=== PATIENT | female | born 1985 | race American Indian/Alaskan Native ===

== ENCOUNTER 2021-06-24 09:43 | Emergency (ER) | payer OTHER ==
[2021-06-24 10:01] VITALS: BP 124/57
[2021-06-24 10:27] LABS: Bilirubin,Urine NEG (Negative); Blood,Urine SM (Negative); Color,Urine Yellow (Yellow); Mucus,Urine 1+ /HPF; Protein,Urine <15 mg/dL mg/dL (Negative)
--- NOTE | 2021-06-24 10:55 | Emergency Department Report ---
ED HPI - General Chief complaint: Abdominal Pain Stated complaint: 19WKS LWER ABDOM PAIN Time Seen by Provider: 06/24/21 10:01 Source: patient Mode of arrival: Ambulatory Limitations: No Limitations - History of Present Illness Initial comments: This is a 35-year-old female nontoxic, well nourished in appearance, no acute signs of distress presents to the ED with c/o of pelvic cramping that started yesterday. Currently patient denies any pelvic pain but stated is intermittent. Patient stated symptoms started after sexual intercourse. Patient denies any abdominal pain. Patient denies any vaginal bleeding. Denies any other complaints or symptoms. Denies any flank pain. Patient denies any vaginal discharge or foul odor. Patient denies any nausea, vomiting, chest pain, shortness of breathe, fever, chills, headache, stiff neck, numbness, tingling. Patient denies any urinary symptoms. Patient denies any allergies or PMH. -: days(s) Location: pelvis Radiation: none Severity: mild Severity scale (0 -10): 3 Quality: cramping Consistency: intermittent Improves with: none Worsens with: none Associated symptoms: denies other symptoms. denies: nausea/vomiting, vaginal bleeding, vaginal discharge, abdominal pain, dysuria, headache, vision changes, malaise, dysparuenia, rash, seizure, shortness of breath, syncope, weakness Vaginal bleeding: none :: Yes Number of weeks : 19 Pre- care: followed by OB - Related Data Previous Rx's Medication Instructions Recorded Last Taken Type Nitrofurantoin [place]/M-Cryst 100 mg PO Q12HR #14 capsule 06/24/21 Unknown Rx [Macrobid CAP] Allergies Allergy/AdvReac Type Severity Reaction Status Date / Time No Known Allergies Allergy Verified 06/24/21 09:52 ED Review of Systems ROS: Stated complaint: 19WKS LWER ABDOM PAIN Other details as noted in HPI Comment: All other systems reviewed and negative Constitutional: denies: chills, fever Eyes: denies: eye pain, eye discharge, vision change ENT: denies: ear pain, throat pain Respiratory: denies: cough, shortness of breath, wheezing Cardiovascular: denies: chest pain, palpitations Endocrine: no symptoms reported Gastrointestinal: denies: abdominal pain, nausea, vomiting, diarrhea, constipation, hematemesis, melena, hematochezia Genitourinary: denies: urgency, dysuria, frequency, hematuria, discharge, abnormal menses, dyspareunia Musculoskeletal: denies: back pain, joint swelling, arthralgia Skin: denies: rash, lesions Neurological: denies: headache, weakness, paresthesias Psychiatric: denies: anxiety, depression Hematological/Lymphatic: denies: easy bleeding, easy bruising ED Past Medical Hx - Medications Home Medications: Home Medications Medication Instructions Recorded Confirmed Last Taken Type Nitrofurantoin [place]/M-Cryst 100 mg PO Q12HR #14 capsule 06/24/21 Unknown Rx [Macrobid CAP] ED Physical Exam - General Limitations: No Limitations General appearance: alert, in no apparent distress - Head Head exam: Present: atraumatic, normocephalic - Eye Eye exam: Present: normal appearance - Neck Neck exam: Present: normal inspection, full ROM. Absent: lymphadenopathy - Respiratory Respiratory exam: Present: normal lung sounds bilaterally. Absent: respiratory distress, wheezes, rales, rhonchi, stridor, chest wall tenderness, accessory muscle use, decreased breath sounds, prolonged expiratory - Cardiovascular Cardiovascular Exam: Present: regular rate, normal rhythm, normal heart sounds. Absent: bradycardia, tachycardia, irregular rhythm, systolic murmur, diastolic murmur, rubs, gallop - GI/Abdominal GI/Abdominal exam: Present: soft, normal bowel sounds. Absent: distended, tenderness, guarding, rebound, rigid, diminished bowel sounds - Extremities Exam Extremities exam: Present: full ROM - Back Exam Back exam: Present: normal inspection, full ROM. Absent: tenderness, CVA tenderness (R), CVA tenderness (L), muscle spasm, paraspinal tenderness, vertebral tenderness, rash noted - Neurological Exam Neurological exam: Present: alert, oriented X3, normal gait - Psychiatric Psychiatric exam: Present: normal affect, normal mood - Skin Skin exam: Present: warm, dry, intact, normal color. Absent: rash ED Course Vital Signs 06/24/21 09:54 Temperature 98.2 F Pulse Rate 90 Respiratory 18 Rate Blood Pressure 124/57 O2 Sat by Pulse 98 Oximetry - Reevaluation(s) Reevaluation #1: 06/24/21 10:55 Patient is speaking in full sentences with no signs of distress noted. ED Medical Decision Making - Lab Data Result diagrams: 06/24/21 11:30 06/24/21 11:30 Lab Results 06/24/21 06/24/21 06/24/21 Range/Units 11:30 11:30 11:30 WBC 10.5 (4.5-11.0) K/mm3 RBC 3.91 (3.65-5.03) M/mm3 Hgb 10.9 (10.1-14.3) gm/dl Hct 32.9 (30.3-42.9) % MCV 84 (79-97) fl MCH 28 (28-32) pg MCHC 33 (30-34) % RDW 14.0 (13.2-15.2) % Plt Count 273 (140-440) K/mm3 Lymph % (Auto) 10.6 L (13.4-35.0) % [place] % (Auto) 9.3 H (0.0-7.3) % Eos % (Auto) 0.9 (0.0-4.3) % Baso % (Auto) 0.3 (0.0-1.8) % Lymph # (Auto) 1.1 L (1.2-5.4) K/mm3 Wythe # (Auto) 1.0 H (0.0-0.8) K/mm3 Eos # (Auto) 0.1 (0.0-0.4) K/mm3 Baso # (Auto) 0.0 (0.0-0.1) K/mm3 Seg Neutrophils % 78.9 H (40.0-70.0) % Seg Neutrophils # 8.3 H (1.8-7.7) K/mm3 Sodium 135 L (137-145) mmol/L Potassium 3.9 (3.6-5.0) mmol/L Chloride 102.6 (98-107) mmol/L Carbon Dioxide 21 L (22-30) mmol/L Anion Gap 15 mmol/L BUN 4 L (7-17) mg/dL Creatinine 0.5 L (0.6-1.2) mg/dL Estimated GFR > 60 ml/min BUN/Creatinine Ratio 8 % Glucose 83 (65-100) mg/dL Calcium 9.0 (8.4-10.2) mg/dL Total Bilirubin 0.20 (0.1-1.2) mg/dL AST 22 (5-40) units/L ALT 39 (7-56) units/L Alkaline Phosphatase 68 (35-129) units/L Total Protein 7.1 (6.3-8.2) g/dL Albumin 3.8 L (3.9-5) g/dL Albumin/Globulin Ratio 1.2 % HCG, Quant 5034 H (0-4) mIU/mL Urine Color (Yellow) Urine Turbidity (Clear) Urine pH (5.0-7.0) Ur Specific [place] (1.003-1.030) Urine Protein (Negative) mg/dL Urine Glucose (UA) (Negative) mg/dL Urine Ketones (Negative) mg/dL Urine Blood (Negative) Urine Nitrite (Negative) Urine Bilirubin (Negative) Urine Urobilinogen (<2.0) mg/dL Ur Leukocyte Esterase (Negative) Urine WBC (Auto) (0.0-6.0) /HPF Urine RBC (Auto) (0.0-6.0) /HPF U Epithel Cells (Auto) (0-13.0) /HPF Urine Mucus /HPF / Range/Units Unknown WBC (4.5-11.0) K/mm3 RBC (3.65-5.03) M/mm3 Hgb (10.1-14.3) gm/dl Hct (30.3-42.9) % MCV (79-97) fl MCH (28-32) pg MCHC (30-34) % RDW (13.2-15.2) % Plt Count (140-440) K/mm3 Lymph % (Auto) (13.4-35.0) % [place] % (Auto) (0.0-7.3) % Eos % (Auto) (0.0-4.3) % Baso % (Auto) (0.0-1.8) % Lymph # (Auto) (1.2-5.4) K/mm3 [place] # (Auto) (0.0-0.8) K/mm3 Eos # (Auto) (0.0-0.4) K/mm3 Baso # (Auto) (0.0-0.1) K/mm3 Seg Neutrophils % (40.0-70.0) % Seg Neutrophils # (1.8-7.7) K/mm3 Sodium (137-145) mmol/L Potassium (3.6-5.0) mmol/L Chloride (98-107) mmol/L Carbon Dioxide (22-30) mmol/L Anion Gap mmol/L BUN (7-17) mg/dL Creatinine (0.6-1.2) mg/dL Estimated GFR ml/min BUN/Creatinine Ratio % Glucose (65-100) mg/dL Calcium (8.4-10.2) mg/dL Total Bilirubin (0.1-1.2) mg/dL AST (5-40) units/L ALT (7-56) units/L Alkaline Phosphatase (35-129) units/L Total Protein (6.3-8.2) g/dL Albumin (3.9-5) g/dL Albumin/Globulin Ratio % HCG, Quant (0-4) mIU/mL Urine Color Yellow (Yellow) Urine Turbidity Slightly-cloudy (Clear) Urine pH 5.0 (5.0-7.0) Ur Specific [place] 1.018 (1.003-1.030) Urine Protein <15 mg/dl (Negative) mg/dL Urine Glucose (UA) Neg (Negative) mg/dL Urine Ketones Neg (Negative) mg/dL Urine Blood Sm (Negative) Urine Nitrite Neg (Negative) Urine Bilirubin Neg (Negative) Urine Urobilinogen 2.0 (<2.0) mg/dL Ur Leukocyte Esterase Lg (Negative) Urine WBC (Auto) 23.0 H (0.0-6.0) /HPF Urine RBC (Auto) 8.0 (0.0-6.0) /HPF U Epithel Cells (Auto) 10.0 (0-13.0) /HPF Urine Mucus 1+ /HPF - Radiology Data [facility] [address] [place] [address] Ultrasound Report Signed Patient: MEMO TAM MR#: [id number] : 1985 Acct:[id number] Age/Sex: 35 / F ADM Date: 06/24/21 Loc: ED Attending Dr: Ordering Physician: NEHEMIAS CASAS NP Date of Service: 06/24/21 Procedure(s): US OB >= 14 weeks Fetus Accession Number(s): [id number] cc: NEHEMIAS CASAS NP OB ULTRASOUND >= 14 WEEKS FETUS INDICATION: pelvic pain COMPARISON: None FINDINGS: A single gestation intrauterine is present with cephalic presentation. The placenta is anterior, grade 0 and free of the cervical os. heart tones measure 159 bpm. The cervix measures 2.8 cm Amniotic fluid volume is normal with a fluid index of . The intracranial structures, spine, diaphragm, umbilical cord, cord insertion, stomach, and bladder show no sonographic abnormality. There is poor visualization of the kidneys and four- chamber heart secondary to position. Biparietal diameter is 4.1 cm which equals 18 weeks 3 days. Head circumference is 15.7 cm which equals 18 weeks 4 days. Abdominal circumference is 13.9 cm which equals 19 weeks 2 days. Femur length is 2.7 cm which equals 18 weeks 1 day. Overall estimated sonographic age is 18 weeks 4 days. EDC: 11/21/2021. HC/AC ratio: 1.13 Cephalic index: 79.2 Estimated weight 256 g IMPRESSION: Viable single intrauterine as described. There is poor visualization of the four-chamber heart and kidneys due to position. Follow-up is recommended. Signer Name: Fausto Magana Jr, MD Signed: 06/24/2021 11:08 AM Workstation Name: [id number] Transcribed By: TTR Dictated By: FAUSTO MAGANA JR, MD Electronically Authenticated By: FAUSTO MAGANA JR, MD Signed Date/Time: 06/24/211107 DD/ 05 TD/TT: - Medical Decision Making This is a 35-year-old female presents with pelvic pain during and UTI. Patient is stable and was examined by me. Normal abdominal exam. US OB obtained and dictated by the radiologist. Ua obtained. Patient notified of the US report with no questions noted by the patient. Patient was instructed f/u with PHYSICAL THERAPY DIRECTOR in 3-5 days. RH factor positive. Labs within normal limits. At time of discharge, the patient does not seem toxic or ill in appearance. No acute signs of distress noted. Patient agrees to discharge treatment plan of care. No further questions noted by the patient. Critical care attestation.: If time is entered above; I have spent that time in minutes in the direct care of this critically ill patient, excluding procedure time. ED Disposition Clinical Impression: Pelvic pain during UTI (urinary tract infection) Qualifiers: Urinary tract infection type: acute cystitis Hematuria presence: without hematuria Qualified Code(s): N30.00 - Acute cystitis without hematuria Disposition: HOME / SELF CARE / HOMELESS Is pt being admited?: No Does the pt Need Aspirin: No Condition: Stable Instructions: Abdominal Pain During , [id number], Urinary Tract Infection, Adult, Abdominal Pain (ED) Additional Instructions: Follow-up with a OBGYN doctor in 3-5 days or if symptoms worsen and continue return to emergency room as soon as possible. Prescriptions: Nitrofurantoin [place]/M-Cryst [Macrobid CAP] 100 mg PO Q12HR #14 capsule Referrals: PRIMARY [facility] [Primary Care Provider] - 3-5 Days [facility] [Provider Group] - 3-5 Days [facility] [Provider Group] - 3-5 Days Forms: Work/School Release Form(ED) Time of Disposition: 12:38
--- NOTE | 2021-06-24 11:12 | Ultrasound Report ---
OB ULTRASOUND >= 14 WEEKS FETUS INDICATION: pelvic pain COMPARISON: None FINDINGS: A single gestation intrauterine is present with cephalic presentation. The placenta is ante rior, grade 0 and free of the cervical os. heart tones measure 159 bpm. The cervix measures 2. 8 cm Amniotic fluid volume is normal with a fluid index of . The intracranial structures, spine, diaphragm, umbilical cord, cord insertion, stomach, and kenan dder show no sonographic abnormality. There is poor visualization of the kidneys and four-chamb er heart secondary to position. Biparietal diameter is 4.1 cm which equals 18 weeks 3 days. Head circumference is 15.7 cm which equals 18 weeks 4 days. Abdominal circumference is 13.9 cm which equals 19 weeks 2 days. Femur length is 2.7 cm which equals 18 weeks 1 day. Overall estimated sonographic age is 18 weeks 4 days. EDC: 11/21/2021. HC/AC ratio: 1.13 Cephalic index: 79.2 Estimated weight 256 g IMPRESSION: Viable single intrauterine as described. There is poor visualization of the four-chamber heart and kidneys due to position. Follow-up is recom mended. Signer Name: Fausto iGll Jr, MD Signed: 06/24/2021 11:08 AM Workstation Name: [id number]
[2021-06-24 12:08] LABS: Basophils % (Auto) 0.3 % (0.0-1.8); Eosinophils # (Auto) 0.1 K/mm3 (0.0-0.4); Eosinophils % (Auto) 0.9 % (0.0-4.3); Hematocrit 32.9 % (30.3-42.9); Hemoglobin 10.9 gm/dl (10.1-14.3); Lymphocytes # (Auto) 1.1 K/mm3 (1.2-5.4); Lymphocytes % (Auto) 10.6 % (13.4-35.0); Mean Corpuscular HGB Conc 33 % (30-34); Mean Corpuscular Volume 84 fl (79-97); Monocytes % (Auto) 9.3 % (0.0-7.3); Platelet Count 273 K/mm3 (140-440); Red Blood Count 3.91 M/mm3 (3.65-5.03)
[2021-06-24 12:33] LABS: Alanine Aminotransferase 39 units/L (7-56); Albumin 3.8 g/dL (3.9-5); Blood Urea Nitrogen 4 mg/dL (7-17); Hemolysis Index 4
[2021-06-24 12:41] LABS: BUN/Creatinine Ratio 8
== END 2021-06-24 12:53 | disposition home or self-care (01) ==
LOC: ED 09:43
DX: O26.892 Other specified pregnancy related conditions, second trimester (principal); O23.42 Unspecified infection of urinary tract in pregnancy, second trimester; R10.2 Pelvic and perineal pain; Z3A.19 19 weeks gestation of pregnancy
CPT/HCPCS: 36415; 76805; 80053; 81001; 84702; 85025; 87086

== ENCOUNTER 2021-06-25 20:08 | Inpatient (IN) | payer OTHER ==
--- NOTE | 2021-06-25 20:16 | History and Physical Report ---
History of Present Illness Date of examination: 06/25/21 Chief complaint: SAB at home History of present illness: EDC 11/22/2021 Past History : 2 Term Births: 1 Premature Births: 0 Living Children: 1 Para: 1 Mult. Births: 0 Prev : 0 Aborta: 0 Elect. Ab: 0 Spont. Ab: 0 Ectopics: 0 # 1 Delivery date: 2014 Weeks Gestation: 37 labor: no Delivery type: Hours of labor: 3 days Anesthesia type: epidural Delivery location: [place] Infant Sex: Female weight: 5-13 Comments: IOL @ 37 wks d/t 2 vessel cord, high blood pressure. Past Medical History: Reviewed and updated today: PCOS Pre Diabetes Past Surgical History: Reviewed and updated today: negative Family History Summary: Father - Has Family History of Heart Disease - Entered On: 03/20/2021 MGM - Has Family History of Breast Cancer - Entered On: 03/20/2021 Aunt - Has Family History of Breast Cancer - Entered On: 03/20/2021 Social History: Smoking History: Patient has never smoked. Risk Factors: Smoked Tobacco Use: Never smoker Smokeless Tobacco Use: Never Passive Smoke Exposure: no HIV High Risk Behavior: low risk Exercise: no Seatbelt Use: 100 % Sun Exposure: rarely Past Medical History Anesthesia Complications: negative Anemia: negative Autoimmune Disorder: negative Bleeding Disorder: negative Blood Transfusions: negative Breast Disease: negative Diabetes: positive, Pre diabetes Heart Disease: negative Hypertension: negative Hepatitis/Liver Disease: negative Kidney Disease/UTI: negative Neurologic/Epilepsy/Migraines: negative Phlebitis/Varicosities: negative Psychiatric: negative Pulmonary Disease/Asthma: negative Thyroid Disease: negative Hospitalizations: negative Surgery (Non-travel pt): negative Abnormal PAP: negative AVANI Exposure: negative Infertility: negative Uterine Anomaly: negative Uterine Surgery (not C/S): negative Other Gynecologic Problems: negative Social Hx: Smoking History: Patient has never smoked. Infection History Hx of STD: Trich/CH HIV Risk Eval: low risk Hepatitis B Risk Eval: low risk Personal hx. of genital herpes: no Partner hx. of genital herpes: no Rash, Viral, or Febrile illness since last LMP? no Varicella/Chicken Pox Status: Previous Disease TB Risk: no Genetic History ADVANCED MATERNAL AGE Congenital Heart Defect: Mom: no Dad: no Wei Disease: Mom: no Dad: no Thalassemia Mom: no Dad: no Neural Tube Defect Mom: no Dad: no Down's Syndrome Mom: no Dad: no Adonis-Sachs Mom: no Dad: no Sickle Cell Disease/Trait Mom: no Dad: no Hemophilia Mom: no Dad: no Muscular Dystrophy Mom: no Dad: no Cystic Fibrosis Mom: no Dad: no [place] Chorea Mom: no Dad: no Mental Retardation Mom: no Dad: no Fragile X Mom: no Dad: no Other Genetic/Chromosomal Disorder Mom: no Dad: no Child w/other defect Mom: no Dad: no Enviromental Exposures Xray Exposure: no Medication, drug, or alcohol use since LMP: no Chemical/Other Exposure: no Exposure to Cat Liter: no Hx of Parvovirus (Fifth Disease): no Occupational Exposure to Children: none Active Medications (reviewed today): None Current Allergies (reviewed today): No known allergies Past History Past Medical History: other (see HPI) Past Surgical History: other (see HPI) ANALYTICS DIRECTOR History: other (see HPI) Family/Genetic History: other (see HPI) - Obstetrical History Expected Date of Delivery: 11/22/21 Actual Gestation: 18 Week(s) 4 Day(s) : 2 Para: 1 Hx # Term Pregnancies: 1 Number of Pregnancies: 0 Spontaneous Abortions: 1 Induced : 0 Number of Living Children: 1 Medications and Allergies Allergies Allergy/AdvReac Type Severity Reaction Status Date / Time No Known Allergies Allergy Verified 06/24/21 09:52 Home Medications Medication Instructions Recorded Confirmed Last Taken Type Nitrofurantoin [place]/M-Cryst 100 mg PO Q12HR #14 capsule 06/24/21 Unknown Rx [Macrobid CAP] Review of Systems All systems: negative - Physical Exam Breasts: Positive: normal Cardiovascular: Regular rate Lungs: Positive: Normal air movement Abdomen: Positive: normal appearance, soft Genitourinary (Female): Positive: normal external genitalia, normal perenium Vulva: both: normal Uterus: Positive: enlarged Anus/Rectum: Positive: normal perianal skin Extremities: Positive: normal Results All other labs normal. Assessment and Plan 35y/o arrived via EMS after birthing 18w4d baby at home. pt reports baby showed signs of life at then passed at some point later. Upon arrival; fundus firm, very scant lochia, no umbilical cord visualized or palpated in cervix. Patient states she does not think the placenta came out but that she did pass some large clots. u/s ordered, IV pitocin ordered. admission process started, brevement processes underway with nursing staff. Pt upset d/t being seen in ED last night and dx with UTI. She states she continued to be in pain/cramping all day until baby was born. - Patient Problems (1) SAB (spontaneous ) Current Visit: Yes Status: Acute (2) 18 weeks gestation of Current Visit: Yes Status: Acute
[2021-06-25] MEDS ORDERED: LANOLIN/ZINC/DIMETHICONE (LANSINOH) 7 GM TP PRN (20:18)
[2021-06-25] MEDS ORDERED: ONDANSETRON 4 MG/2 ML INJ IV PRN (20:18)
[2021-06-25] MEDS ORDERED: PROMETHAZINE 25 MG RECT SUPP PR PRN (20:18)
[2021-06-25] MEDS ORDERED: ACETAMINOPHEN 325 MG TAB PO PRN (20:18)
[2021-06-25] MEDS ORDERED: WITCH HAZEL/ GLYCERIN PAD TP PRN (20:18)
[2021-06-25] MEDS ORDERED: KETOROLAC 30 MG/1 ML INJ IV PRN (20:18)
[2021-06-25] MEDS ORDERED: diphenhydrAMINE 25 MG CAP PO PRN (20:18)
[2021-06-25] MEDS ORDERED: PROMETHAZINE 25 MG TAB PO PRN (20:18)
[2021-06-25] MEDS ORDERED: MAGNESIUM HYDROXIDE (MOM) ORAL LIQD UDC PO PRN (20:18)
[2021-06-25] MEDS ORDERED: fentaNYL 100 MCG/2 ML INJ IV ONE (20:22)
[2021-06-25] MEDS ORDERED: IBUPROFEN 600 MG TAB PO SCH (21:00)
[2021-06-25] MEDS: OXYTOCIN DRIP 30 UNITS/500 ML BAG IV SCH (21:12)
--- NOTE | 2021-06-25 21:27 | Event Note ---
Date: 06/25/21 pelvic u/s confirms placenta is retained. Will continue with IV Pitocin. Bleeding scant, pt comfortable. Dr. Erazo aware and updated.
--- NOTE | 2021-06-25 21:36 | Ultrasound Report ---
Pelvic ultrasound INDICATION: Evaluate placenta FINDINGS: Uterus measures 13.4 x 3 0.96 to 7.25 cm. Uterus is anteflexed. Ovaries are not visualized. Small amount of increased fluid there is some fluid with increased flow within the endometrium and u terus. IMPRESSION: Abnormal appearance with fluid in the endometrium with some increased flow. Findings suggest retained products of conception in the uterus. Signer Name: David Almanza MD Signed: 06/25/2021 9:32 PM Workstation Name: [id number]
[2021-06-25] MEDS ORDERED: FERROUS SULFATE 325 MG TAB PO SCH (22:00)
[2021-06-25] MEDS ORDERED: DOCUSATE SODIUM 100 MG CAP PO SCH (22:00)
[2021-06-26] MEDS ORDERED: IBUPROFEN 800 MG TAB PO SCH
[2021-06-26 00:20] LABS: Hematocrit 32.2 % (30.3-42.9); Hemoglobin 10.7 gm/dl (10.1-14.3); Mean Corpuscular HGB Conc 33 % (30-34); Mean Corpuscular Volume 85 fl (79-97); Platelet Count 271 K/mm3 (140-440); Red Blood Count 3.81 M/mm3 (3.65-5.03); Red Cell Distribution Width 13.9 % (13.2-15.2)
--- NOTE | 2021-06-26 00:51 | Event Note ---
Date: 06/26/21 baby del approx 6hrs ago, placenta has not yet delivered. Bleeding is scant to small with a few occasional clots. Dr. quinonez updated, will try dose of Cytotec.
[2021-06-26] MEDS ORDERED: miSOPROStol 200 MCG TAB VG SCH (01:00)
[2021-06-26] MEDS: OXYTOCIN DRIP 30 UNITS/500 ML BAG IV SCH (01:05)
[2021-06-26] MEDS ORDERED: LACTATED RINGERS 1,000 ML IV SCH (03:00)
--- NOTE | 2021-06-26 03:03 | Anesthesia Consultation ---
Anesthesia Consult and Med Hx Date of service: 06/26/21 - Airway Anesthetic Teeth Evaluation: Good ROM Head & Neck: Adequate Mental/Hyoid Distance: Adequate Mallampati Class: Class II Intubation Access Assessment: Probably Good - Pulmonary Exam CTA: Yes - Cardiac Exam Cardiac Exam: RRR - Pre-Operative Health Status ASA Pre-Surgery Classification: ASA3 Proposed Anesthetic Plan: Spinal - Pulmonary Hx Asthma: No - Cardiovascular System Hx Hypertension: No - Central Nervous System Hx Seizures: No Hx Psychiatric Problems: No - Endocrine Hx Renal Disease: No Hx Hypothyroidism: No Hx Hyperthyroidism: No - Hematic Hx Anemia: No Hx Sickle Cell Disease: No - Other Systems Hx Alcohol Use: Yes Hx Obesity: Yes
--- NOTE | 2021-06-26 03:03 | Anesthesia Day of Surgery ---
Anesthesia Day of Surgery - Day of Surgery Patient Examined: Yes Patient H&P Reviewed: Yes Patient is NPO: Yes
[2021-06-26] MEDS ORDERED: propofoL 200 MG/20 ML VIAL IV ONE ×2 (03:16→03:35)
[2021-06-26] MEDS ORDERED: KETAMINE/STERILE WATER 50 MG/ML SYRINGE ONE (03:16)
[2021-06-26] MEDS ORDERED: LIDOCAINE MPF (2%) 20 MG/1 ML VIAL 5 ML ONE (03:17)
--- NOTE | 2021-06-26 03:18 | Event Note ---
Date: 06/26/21 Patient with retained placenta that has failed to be delivered with assisted of Pitocin and Cytotec. Discussed indications for dilatation curettage. Discussed with the patient risks of surgery including bleeding infection and possible perforation of the uterus. Patient is understandably upset but desires to proceed.
[2021-06-26] MEDS ORDERED: MIDAZOLAM 2 MG/2 ML INJ ONE (03:35)
[2021-06-26] MEDS ORDERED: LACTATED RINGERS 1,000 ML ONE (03:45)
[2021-06-26] MEDS ORDERED: METHYLERGONOVINE MALEATE 0.2 MG/ML VIAL IM ONE ×2 (03:47)
--- NOTE | 2021-06-26 04:05 | Operative Report ---
Operative Report Operative Report: Date of procedure: June 26, 2021 Pre-operative diagnosis: Retained placenta Post-operative diagnosis: Same Procedure name(s): Suction dilatation and curettage Surgeon: Jamal Erazo MD Operating Cost Clerk: [] Anesthesia: Sedation EBL: 200 mL Complications: None Findings: A large amount of tissue consistent with products of conception Specimen(s): Uterine contents Procedure: The patient was brought operating room where anesthesia was induced without difficulty. Patient was placed in dorsal lithotomy position prepped and draped in the usual sterile manner. Rubber catheter was used to empty her bladder. Speculum placed in the vagina. Tenaculum was placed at 12:00. The cervix was dilated with some clots present in her cervical os. A 12 mm suction catheter was placed through the cervical os. Several passes of the suction catheter removed the uterine contents. A gentle curettage was done with a banjo curettte, until a gritty sensation was felt throughout the uterine cavity. Further suction with the suction curettage revealed no further products. All instruments were removed patient was hemostatic. She was awakened in the operating room and accompanied to recovery room in good condition.
[2021-06-26] MEDS ORDERED: TETANUS,DIPH,PERTUSS(ACELL) VACCINE 0.5 ML SYRINGE IM ONE (06:00)
[2021-06-26 08:22] LABS: Hematocrit 28.3 % (30.3-42.9); Hemoglobin 9.5 gm/dl (10.1-14.3)
[2021-06-26] MEDS ORDERED: DOXYCYCLINE 100 MG CAP PO SCH (10:00)
--- NOTE | 2021-06-26 11:14 | Discharge Summary ---
Providers - Providers Date of Admission: 06/25/21 20:18 Date of discharge: 06/26/21 Attending physician: SRINATH ÁLVAREZ Primary care physician: SRINATH ÁLVAREZ Hospitalization Reason for admission: labor Delivery: Episiotomy: none Laceration: none Other procedures: curettage (D&C for retained placenta.) complications: none Discharge diagnosis: delivery (18.5 wk loss. ) Hospital course: S: Pt tearful. States that she is okay and would like to go home. Voiding, passing flatus, and ambulating okay. O: VSS. H/H 9.5/28.3, asymptomatic anemia of delivery. Minimal bleeding noted. A: 35 y.o. s/p of pre viable fetus @ 18.5 wks, s/p D&C for retained placenta. In good condition and can be discharged home. P: Discharge home with instructions. Pt to schedule post op appointment in 1 week. Disposition: 30 STILL A PATIENT Plan - Discharge Medications Prescriptions: Docusate Sodium [Colace] 100 mg PO BID PRN #60 capsule PRN Reason: Constipation Ferrous Sulfate [Feosol 325 MG tab] 325 mg PO BID #60 tablet Ibuprofen [Motrin] 800 mg PO TID PRN #30 tablet PRN Reason: Pain DOXYCYCLINE Hyclate [Vibramycin CAP] 100 mg PO Q12HR #14 capsule - Provider Discharge Summary Activity: routine, no sex for 6 weeks, no heavy lifting 4 weeks, no strenuous exercise Diet: routine Instructions: routine Additional instructions: [] Smoking cessation referral if applicable(refer to patient education folder for contact #) [] Refer to [facility]'s [facility] Booklet Call your doctor immediately for: * Fever > 100.5 * Heavy vaginal bleeding ( >1 pad per hour) * Severe persistent headache * Shortness of breath * Reddened, hot, painful area to leg or breast * Drainage or odor from incision. * Keep incision clean and dry at all times and follow doctor's instructions regarding bathing/showering We are very sorry for your loss. Please let us know if we can assist you in any way. Please schedule a post op check in the office in 1 week. Should you have any questions or concerns after discharge, please do not hesitate to call the office at [phone]. - Follow up plan Follow up: SRINATH ÁLVAREZ MD [Primary Care Provider] - 7 Days Forms: C Discharge Summary
--- NOTE | 2021-06-26 12:05 | Post Anesthesia Evaluation ---
- Post Anesthesia Evaluation Patient Participated: Yes Airway Patent: Yes Stable Respiratory Function: Yes Nausea/Vomiting: No Temp > 96.8F: Yes Pain Manageable: Yes Adequeate Hydration: Yes Anesthesia Complications: No Block Receding Appropriately: Not Applicable
[2021-06-26 18:02] VITALS: BP 115/63
== END 2021-06-26 17:30 | disposition home or self-care (01) | DRG 770 ==
LOC: TRG 20:08 → LD 20:09 → TRG 20:18 → LD 20:18 → OB 06-26 05:56
PROVIDERS: ADMIT Obstetrics & Gynecology; ATTEND Obstetrics & Gynecology
PROC: 10D17ZZ Extraction of Products of Conception, Retained, Via Natural or Artificial Opening (ICD-10-PCS; principal; 2021-06-26)
DX: O03.9 Complete or unspecified spontaneous abortion without complication (principal); Z20.822 Contact with and (suspected) exposure to COVID-19; Z3A.18 18 weeks gestation of pregnancy
CPT/HCPCS: 36415; 76805; 76857; 80053; 81001; 84702; 85014; 85018; 85025; 85027; 86850; 86900; 86901; 87086; 88305; G0378; J1885; J2210; J2250; J2590; J2704; J3490; J7120; U0003